=== PATIENT | female | born 1965 | race Caucasian/White ===

== ENCOUNTER 2018-10-11 10:34 | Emergency (ER) | payer OTHER ==
[~2018-10-11] VITALS: Ht 160 cm; Wt 104.1 kg
[~2018-10-11 10:34] MED LIST: ATOR20TA86 PO; OMEP20 PO; SOLI5 PO
[2018-10-11 10:49] LABS: GLUCOSE,POINT OF CARE 114 MG/DL (70-110)
[2018-10-11 11:19] VITALS: BP 133/82
== END 2018-10-11 12:51 | disposition left against medical advice (07) ==
LOC: EMS 10:35
DX: R73.9 Hyperglycemia, unspecified (principal); Z53.21 Procedure and treatment not carried out due to patient leaving prior to being seen by health care provider